=== PATIENT | female | born 1990 | race Caucasian/White ===

== ENCOUNTER 2016-12-16 20:45 | Emergency (ER) | payer BC, OTHER ==
[2016-12-16 21:11] VITALS: TEMP 98.2; BMI 28.0
--- NOTE | 2016-12-16 21:25 | PDOC ---
History of Present Illness - History of Present Illness Initial Comments: 12/16/16 21:37 Patient is a 26 year old female (36 weeks) with significant medical hx of migraines who is presenting to the ED with frontal headache and syncope. The patient reports today she developed a headache with nausea, vomiting and an episode of syncope. She states that she's had two similar events during this with headache and syncope. The patient called her CHIP MIXER who recommended taking tylenol for headache. Patient reports taking tylenol at 8 PM which did not relieve her symptoms so she decided to come to the ED for further evaluation. Denies any visual complaints, photophobia, head trauma, swelling of hands or feet, abdominal pain, or vaginal bleeding. - Reports no complications with past pregnancies. <Kyara Carpenter - Last Filed: 12/16/16 21:37> <Zulma Toscano - Last Filed: 12/19/16 08:18> - General Chief Complaint: Headache Stated Complaint: 36 WEEKS, HIGH BLOOD PRESSURE Time Seen by Provider: 12/16/16 21:15 Past History <Kyara Carpenter - Last Filed: 12/16/16 21:37> - Past Medical History Asthma: No Cancer: No Cardiac Disorders: No Diabetes: No HTN: No Seizures: No Thyroid Disease: No - Psycho/Social/Smoking Cessation Hx Suicidal Ideation: No Smoking Status: No Smoking History: Never smoked Have you smoked in the past 12 months: No Number of Cigarettes Smoked Daily: 0 Information on smoking cessation initiated: No Hx Alcohol Use: No Drug/Substance Use Hx: No Hx Substance Use Treatment: No <Zulma Toscano - Last Filed: 12/19/16 08:18> - Past Medical History Allergies/Adverse Reactions: Allergies Allergy/AdvReac Type Severity Reaction Status Date / Time No Known Allergies Allergy Verified 12/16/16 21:04 Home Medications: Ambulatory Orders Vitamins (Sjr) - 1 tab PO DAILY 08/29/13 Ibuprofen [Motrin -] 600 mg PO TID PRN #60 tablet 11/19/13 Review of Systems - Review of Systems Comments:: 12/16/16 21:41 GENERAL/CONSTITUTIONAL: No fever or chills. No weakness. HEAD, EYES, EARS, NOSE AND THROAT: No change in vision. No ear pain or discharge. No sore throat. CARDIOVASCULAR: No chest pain or shortness of breath. RESPIRATORY: No cough, wheezing, or hemoptysis. GASTROINTESTINAL: Nausea, vomiting. No diarrhea or constipation. GENITOURINARY: No dysuria, frequency, or change in urination. MUSCULOSKELETAL: No joint or muscle swelling or pain. No neck or back pain. ENDOCRINE: No increased thirst. No abnormal weight change. SKIN: No rash NEUROLOGIC: Frontal headache, loss of consciousness. No vertigo or change in strength/sensation. <Kyara Carpenter - Last Filed: 12/16/16 21:37> *Physical Exam - Vital Signs Last Vital Signs Temp Pulse Resp BP Pulse Ox 98.2 F 87 21 139/79 98 12/16/16 21:02 12/16/16 21:02 12/16/16 21:02 12/16/16 21:02 12/16/16 21:02 - Physical Exam Comments: 12/16/16 21:42 GENERAL: Awake, alert, and fully oriented, in no acute distress HEAD: No signs of trauma EYES: PERRLA, EOMI, sclera anicteric, conjunctiva clear ENT: Auricles normal inspection, hearing grossly normal, nares patent, oropharynx clear without exudates. Moist mucosa NECK: Normal ROM, supple, no lymphadenopathy, JVD, or masses LUNGS: Breath sounds equal, clear to auscultation bilaterally. No wheezes, and no crackles HEART: Regular rate and rhythm, normal S1 and S2, no murmurs, rubs or gallops ABDOMEN: Gravid abdomen. Soft, nontender, normoactive bowel sounds. No guarding , no rebound. No masses EXTREMITIES: Normal range of motion, no edema. No clubbing or cyanosis. No cords, erythema, or tenderness NEUROLOGICAL: Cranial nerves II through XII grossly intact. Normal speech, normal gait SKIN: Warm, Dry, normal turgor, no rashes or lesions noted. HEMATOLOGIC/LYMPHATIC: No anemia, easy bleeding, or history of blood clots. ALLERGIC/IMMUNOLOGIC: No hives or skin allergy. <Kyara Carpenter - Last Filed: 12/16/16 21:37> - Vital Signs Last Vital Signs Temp Pulse Resp BP Pulse Ox 98.2 F 87 21 139/79 98 12/16/16 21:02 12/16/16 21:02 12/16/16 21:02 12/16/16 21:02 12/16/16 21:02 <Zulma Toscano - Last Filed: 12/19/16 08:18> ED Treatment Course - LABORATORY CBC & Chemistry Diagram: 12/16/16 22:40 <Zulma Toscano - Last Filed: 12/19/16 08:18> Medical Decision Making - Medical Decision Making 12/16/16 22:05 Pt presents to the ED complaining of headache that is similar to the headaches that she has had throughout her . States that she vomited and immediately afterward had a syncope. Denies loss of bowel or bladder control or post ictal period. Patient reports that this is her third syncope during this pregancy. She has been told that her blood pressure is high during her last three OB visits. Denies other symptoms of pre-ecclampsia. Now is asymptomatic except for headache. Will send patient to L and D for monitoring. <Zulam Toscano - Last Filed: 12/19/16 08:18> *DC/Admit/Observation/Transfer - Attestations Scribe Attestion: 12/16/16 21:42 Documentation prepared by Kyara Carpenter, acting as durable medical equipment technician for Zulma Toscano MD. <Kyara Carpenter - Last Filed: 12/16/16 21:37> <Zulma Toscano - Last Filed: 12/19/16 08:18> Diagnosis at time of Disposition: Headache - Discharge Dispostion Disposition: HOME Condition at time of disposition: Good - Referrals Referrals: Mandy Chowdhury MD [Primary Care Provider] - - Patient Instructions Additional Instructions: Call Dr. Chowdhury's office for follow-up appointment. Begin taking an over-the- counter iron supplement. Increase your water intake. Return to Labor & Delivery for any of the following: - Regular Contractions - Ruptured Membranes - Vaginal Bleeding - Decreased Movement - Persistent Headache - Visual Changes - Upper Abdominal Pain Any questions or concerns, please call Labor and Delivery at [phone].
[2016-12-16] MEDS ORDERED: LACTATED RINGERS SOLUTION 500 ML IV ONE ×2 (22:25→23:25)
[2016-12-16 23:14] VITALS: PULSE 68
[2016-12-16 23:29] LABS: BASOPHIL 0.5 % (0-2.0); EOSINOPHIL 1.2 % (0-4.5); MCH 26.2 pg (25.7-33.7); MCHC 32.6 g/dl (32.0-36.0); MEAN CELL VOLUME 80.2 fl (80-96); MEAN PLT VOLUME 7.2 fl (7.5-11.1); PLATELET COUNT 292 K/MM3 (134-434); WHITE BLOOD COUNT 7.7 K/mm3 (4.0-10.0)
[2016-12-16 23:41] VITALS: BP 121/78
[2016-12-16] MEDS ORDERED: ACETAMINOPHEN 325 MG TABLET (FP) PO ONE (23:45)
--- NOTE | 2016-12-18 21:44 | EKG ---
Test Reason : Blood Pressure : / mmHG Vent. Rate : 077 BPM Atrial Rate : 077 BPM P-R Int : 132 ms QRS Dur : 092 ms QT Int : 400 ms P-R-T Axes : 048 061 034 degrees QTc Int : 452 ms NORMAL SINUS RHYTHM WITH SINUS ARRHYTHMIA NORMAL ECG WHEN COMPARED WITH ECG OF 01-APR-2012 16:37, NO SIGNIFICANT CHANGE WAS FOUND Confirmed by IVAN YBARRA MD ([id number]) on 12/18/2016 9:44:39 PM Referred By: Confirmed By:IVAN YBARRA MD
== END 2016-12-17 01:45 | disposition home or self-care (01) ==
LOC: JER 20:45 → SUPCPDRO 20:45 → JER 12-17 01:45
DX: O26.892 Other specified pregnancy related conditions, second trimester (principal); O16.2 Unspecified maternal hypertension, second trimester; Z3A.26 26 weeks gestation of pregnancy
CPT/HCPCS: 36415; 85025; 93005; 93010; 99282-25

== ENCOUNTER 2017-01-11 22:40 | Inpatient (IN) | payer BC ==
[2017-01-12 00:18] LABS: BASOPHIL 0.6 % (0-2.0); EOSINOPHIL 0.5 % (0-4.5); MCH 25.3 pg (25.7-33.7); MCHC 32.1 g/dl (32.0-36.0); MEAN CELL VOLUME 78.8 fl (80-96); MEAN PLT VOLUME 7.2 fl (7.5-11.1); NEUTROPHILS 76.1 % (42.8-82.8); PLATELET COUNT 274 K/MM3 (134-434); RDW 14.1 % (11.6-15.6); WHITE BLOOD COUNT 7.4 K/mm3 (4.0-10.0)
[2017-01-12 00:34] LABS: INR 0.98 (0.82-1.09); PROTHROMBIN TIME (PATIENT) 10.8 SEC (9.98-11.88)
[2017-01-12 00:37] LABS: ACTIVATED PTT 27.3 SECONDS (26.9-34.4)
[2017-01-12 00:42] LABS: ALBUMIN 2.6 g/dl (3.4-5.0); ANION GAP 10 (8-16); CALCIUM 8.7 mg/dL (8.5-10.1); CO2 24 mmol/L (21-32); CREATININE 0.6 mg/dL (0.55-1.02); GLUCOSE,RANDOM 115 mg/dL (74-106); SGOT/AST 15 U/L (15-37); SGPT/ALT 17 U/L (12-78)
[2017-01-12 00:44] LABS: ALK PHOS 158 U/L (45-117); BILIRUBIN,TOTAL 0.2 mg/dL (0.2-1.0); TOT PROT 6.4 g/dl (6.4-8.2)
[2017-01-12] MEDS ORDERED: TUBERCULIN PPD 5 TU/0.1ML SYRINGE (IN PATIENT USE ONLY) ID ONE (00:45)
[2017-01-12] MEDS ORDERED: DEXTROSE 5%-LACTATED RINGERS 1,000 ML IV SCH ×2 (00:45→01:30)
[2017-01-12 01:06] VITALS: BMI 27.4
[2017-01-12] MEDS ORDERED: DINOPROSTONE 10 MG VAGINAL SUPPOSITORY VG ONE (01:18)
--- NOTE | 2017-01-12 01:23 | HP ---
Past Medical History - Admission Chief Complaint: Leakage of fluid History of Present Illness: 26 yo @ 40 weeks gestation, EDC 01/12/17, admitted for rupture of membrane, She denies any contraction pain. History Source: Patient Limitations to Obtaining History: No Limitations - Past Medical History ...: 3 ...Para: 2 ...Term: 2 ...: 0 ...Spon : 0 ...Induced : 0 ...Multiple Gestation: 0 ...LMP: 04/07/16 ... Weeks Gestation by Dates: 39.6 ...EDC by Dates: 01/12/17 ...EDC by Sono: 01/12/17 - Past Surgical History Past Surgical History: Yes: None Hx Myomectomy: No Hx Transabdominal Cerclage: No - Smoking History Smoking history: Never smoked Have you smoked in the past 12 months: No Aproximately how many cigarettes per day: 0 - Alcohol/Substance Use Hx Alcohol Use: No History of Substance Use: reports: None - Social History Usual Living Arrangement: Yes: With Spouse ADL: Independent History of Recent Travel: No Home Medications - Allergies Allergies/Adverse Reactions: Allergies Allergy/AdvReac Type Severity Reaction Status Date / Time No Known Allergies Allergy Verified 12/16/16 21:04 - Home Medications Home Medications: Ambulatory Orders Vitamins (Sjr) - 1 tab PO DAILY 08/29/13 Family Disease History - Family Disease History Family History: Unremarkable Review of Systems - Review of Systems Constitutional: reports: No Symptoms Eyes: reports: No Symptoms HENT: reports: No Symptoms Neck: reports: No Symptoms Cardiovascular: reports: No Symptoms Respiratory: reports: No Symptoms Gastrointestinal: reports: No Symptoms Genitourinary: reports: Other (Leakage of fluid) Breasts: reports: No Symptoms Reported Musculoskeletal: reports: No Symptoms Neurological: reports: No Symptoms Psychiatric: reports: No Symptoms Pain Intensity: 2 Physical Exam - Maternity Vital Signs: Vital Signs Temperature 98.2 F 01/11/17 23:10 Pulse Rate 103 H 01/11/17 23:10 Respiratory Rate 20 01/11/17 23:10 Blood Pressure 127/84 01/11/17 23:10 O2 Sat by Pulse Oximetry (%) Constitutional: Yes: Well Nourished Eyes: Yes: Conjunctiva Clear Neck: Yes: Supple, Trachea Midline Cardiovascular: Yes: Regular Rate and Rhythm Lungs: Clear to auscultation - Abdominal Exam/OB Number of Fetuses: Single Presentation: Vertex Contractions: No Intensity: Unaware - Vaginal Exam/OB Vaginal Bleediing: No Dilatation (cm): 1-2 Effacement (%): 60 Amniotic Membrane Status: Leaking Nitrazine Test: Positive Amniotic Fluid: Yes: Clear Presentation: Vertex/Position Station: -2 - Labs Lab Results: CBC, BMP 01/12/17 00:00 01/12/17 00:00 Problem List - Problems (1) Rupture of membranes with delay of delivery Code(s): O42.90 - NAVNEET ROM, 7TH0 BETW RUPT & ONST LABR, UNSP WEEKS OF GEST Assessment/Plan Spontaneous rupture of membrane Admit to L&D Cervidil induction Re-evaluate in 12 hrs or before if indicated
[2017-01-12] MEDS ORDERED: ELECTROLYTE-148 SOLN 1,000 ML IV SCH ×2 (03:30→05:30)
[2017-01-12] MEDS ORDERED: FENTANYL/BUPIVACAINE/NS/PF - PCEA - 50 ML DISP.SYRIN EP SCH (04:30)
[2017-01-12] MEDS ORDERED: METHYLERGONOVINE MALEATE 0.2 MG/1 ML AMP IM PRN (08:59)
[2017-01-12] MEDS ORDERED: BENZOCAINE 28 GM HEMORRHOIDAL OINTMENT TP PRN (08:59)
[2017-01-12] MEDS ORDERED: BENZOCAINE 20% 57 GM BOTTLE TP PRN (08:59)
[2017-01-12] MEDS ORDERED: WITCH HAZEL 50% (TUCKS) 40 PAD/JAR PAD TP PRN (08:59)
[2017-01-12] MEDS ORDERED: ACETAMINOPHEN 325 MG TABLET (FP) PO PRN (08:59)
[2017-01-12] MEDS ORDERED: BISACODYL 10 MG SUPP.RECT RC PRN (08:59)
[2017-01-12] MEDS ORDERED: D5W-LR W/ 20 UNITS OXYTOCIN 1,000 ML IV SCH (09:00)
--- NOTE | 2017-01-12 09:04 | PN ---
Delivery - Delivery Vaginal Delivery: Spontaneous Type of Anesthesia: Epidural Episiotomy/Laceration: 1st degree EBL (cc): 300 Delivery, Single - [place] Feeding Plan Initial Plan: Elected not to breastfeed exclusively throughout hospitalization Remarks - Remarks Remarks: Normal spontaneous vaginal delivery of a live infant boy. Nose / Oropharynx suctioned @ perineum. Cord clamped and cut. Placenta expelled spontaneously intact. First degree laceration repaired with 2.0 Chromic
[2017-01-12] MEDS: PRENATAL VITAMINS W/ FOLIC ACID TABLET (FP) PO SCH (11:02)
[2017-01-12] MEDS: FERROUS SO4 325 MG TABLET (FP) PO SCH ×2 (11:03→16:50)
[2017-01-12] MEDS: IBUPROFEN 600 MG TABLET (FP) PO PRN (11:54)
--- NOTE | 2017-01-13 06:23 | PN ---
Post Note - Post Date of Delivery: 01/12/17 Post Day: 1 Vital Signs: Vital Signs - 24 hr 01/12/17 01/12/17 01/12/17 06:35 06:50 07:05 Temperature Pulse Rate 83 94 H Respiratory 20 20 20 Rate Blood Pressure 122/85 125/80 O2 Sat by Pulse 99 99 99 Oximetry (%) 01/12/17 01/12/17 01/12/17 07:20 07:35 07:50 Temperature Pulse Rate 83 101 H 98 H Respiratory 20 20 20 Rate Blood Pressure 127/83 130/92 132/85 O2 Sat by Pulse 99 99 98 Oximetry (%) 01/12/17 01/12/17 01/12/17 08:04 08:40 08:55 Temperature Pulse Rate 92 H 102 H 87 Respiratory 20 20 20 Rate Blood Pressure 124/90 130/85 146/90 O2 Sat by Pulse 98 98 Oximetry (%) 01/12/17 01/12/17 01/12/17 09:10 09:30 10:45 Temperature 98.4 F 97.4 F L Pulse Rate 82 82 81 Respiratory 20 20 20 Rate Blood Pressure 84/65 102/70 130/80 O2 Sat by Pulse Oximetry (%) 01/12/17 01/12/17 01/12/17 13:47 17:46 22:00 Temperature 98.1 F 98.4 F 98.8 F Pulse Rate 84 89 79 Respiratory 20 20 18 Rate Blood Pressure 134/83 130/88 143/93 O2 Sat by Pulse Oximetry (%) 01/13/17 01/13/17 02:00 06:00 Temperature 98.2 F 98.2 F Pulse Rate 79 79 Respiratory 18 18 Rate Blood Pressure 133/81 136/88 O2 Sat by Pulse Oximetry (%) Labs: Laboratory Results - last 24 hr 01/12/17 00:00 RPR Titer Nonreactive - Subjective Subjective: No Complaints - Objective Afebrile: Yes Breast: Not engorged Abdomen: Soft, Non-tender Uterus: Fundus firm Vagina: Scant lochia Extremities: Non-tender - Assessment/Plan (1) Status post vaginal delivery Assessment: S/P Normal Plan: Routine Care
[2017-01-13 08:02] LABS: BASOPHIL 0.6 % (0-2.0); EOSINOPHIL 0.7 % (0-4.5); MCH 25.9 pg (25.7-33.7); MCHC 32.6 g/dl (32.0-36.0); MEAN CELL VOLUME 79.5 fl (80-96); MEAN PLT VOLUME 7.4 fl (7.5-11.1); NEUTROPHILS 79.8 % (42.8-82.8); PLATELET COUNT 233 K/MM3 (134-434); RDW 14.7 % (11.6-15.6); WHITE BLOOD COUNT 10.2 K/mm3 (4.0-10.0)
[2017-01-13] MEDS: FERROUS SO4 325 MG TABLET (FP) PO SCH ×3 (08:20→17:16)
[2017-01-13] MEDS: PRENATAL VITAMINS W/ FOLIC ACID TABLET (FP) PO SCH (09:14)
[2017-01-13] MEDS ORDERED: DIPHTH,PERTUSS(ACELL),TET 0.5 ML DISP.SYRIN IM ONE (10:00)
[2017-01-13] MEDS: IBUPROFEN 600 MG TABLET (FP) PO PRN ×2 (11:30→21:07)
[2017-01-13] MEDS ORDERED: SENNOSIDES/DOCUSATE COMBO (SENNA PLUS) TABLET (UD) PO PRN (22:00)
--- NOTE | 2017-01-14 05:12 | DS ---
Physical Exam-PHOTOGRAPH INSPECTOR Vital Signs: Vital Signs Temperature 98.0 F 01/13/17 22:00 Pulse Rate 76 01/13/17 22:00 Respiratory Rate 18 01/13/17 22:00 Blood Pressure 126/81 01/13/17 22:00 O2 Sat by Pulse Oximetry (%) 98 01/12/17 08:40 Constitutional: Yes: Well Nourished, No Distress Neck: Yes: WNL Cardiovascular: Yes: WNL, Regular Rate and Rhythm Respiratory: Yes: WNL Gastrointestinal: Yes: WNL ...Rectal Exam: Yes: WNL ....Post : Yes: Uterus firm, Uterus non-tender Musculoskeletal: Yes: WNL Extremities: Yes: WNL Edema: No Labs: CBC, BMP 01/13/17 06:00 01/12/17 00:00 Delivery - Delivery Vaginal Delivery: Spontaneous Type of Anesthesia: Epidural Episiotomy/Laceration: 1st degree EBL (cc): 300 Delivery, Single - Stages of Labor Date 1st Stage Initiatied: 01/12/17 Time 1st Stage Initiated: 04:00 Date 2nd Stage Initiated: 01/12/17 Time 2nd Stage Initiated: 08:10 Date of Delivery: 01/12/17 Time of Delivery: 08:26 Time Placenta Delivered: 08:30 Placenta: Yes: Spontaneous - Condition of Senior Developer/Email Marketing Processor Present: No Gender: Male Weight: 7 lb 7 oz Position: Left, OA Total Hours ROM (Hrs/Mins): 10/54 - 1 Minute Total Score: 9 5 Minutes Total Score: 9 - Feeding Plan Initial Plan: Elected not to breastfeed exclusively throughout hospitalization Discharge Summary Reason For Visit: LABOR Current Active Problems Rupture of membranes with delay of delivery (Acute) Procedures: Principal: Normal vaginal delivery Condition: Good - Instructions Referrals: Mandy Chowdhury MD [Staff Physician] - Disposition: HOME - Home Medications Comprehensive Discharge Medication List: Ambulatory Orders Vitamins (Sjr) - 1 tab PO DAILY 08/29/13 Ferrous Sulfate [Feosol] 325 mg PO DAILY 01/12/17 Ibuprofen [Motrin -] 600 mg PO QID PRN #28 tablet 01/12/17
[2017-01-14] MEDS: FERROUS SO4 325 MG TABLET (FP) PO SCH (08:45)
[2017-01-14] MEDS: PRENATAL VITAMINS W/ FOLIC ACID TABLET (FP) PO SCH (09:28)
[2017-01-14 14:22] VITALS: BP 127/85; PULSE 74; TEMP 98.9
== END 2017-01-14 10:15 | disposition home or self-care (01) | DRG 775 ==
LOC: JDEL 22:40 → JLDR 23:10 → J3W 01-12 10:29
PROVIDERS: ADMIT Obstetrics & Gynecology; ATTEND Obstetrics & Gynecology
PROC: 0HQ9XZZ Repair Perineum Skin, External Approach (ICD-10-PCS; principal; 2017-01-12)
PROC: 10E0XZZ Delivery of Products of Conception, External Approach (ICD-10-PCS; 2017-01-12)
PROC: 3E0P7GC Introduction of Other Therapeutic Substance into Female Reproductive, Via Natural or Artificial Opening (ICD-10-PCS; 2017-01-12)
DX: O48.0 Post-term pregnancy (principal); Z37.0 Single live birth; O70.0 First degree perineal laceration during delivery; Z3A.40 40 weeks gestation of pregnancy
CPT/HCPCS: 36415; 59409; 80053; 85025; 85610; 85730; 86593; 86762; 86850; 86900; 86901; 87340; 90715

== ENCOUNTER 2022-03-26 16:20 | Inpatient (IN) | payer OTHER ==
[2022-03-26] MEDS: NIFEdipine 10 MG CAPSULE (FP) PO SCH (17:13)
[2022-03-26] MEDS ORDERED: NIFEdipine 10 MG CAPSULE (FP) ONE (17:13)
[2022-03-26 17:24] VITALS: BMI 29.0
[2022-03-26 17:25] LABS: BASO % 0.4 % (0-2.0); EOS % 0.1 % (0-4.5); HEMOGLOBIN 11.4 GM/dL (10.7-15.3); LYMPH % 14.6 % (8-40); MCH 26.8 pg (25.7-33.7); MCHC 33.4 g/dl (32.0-36.0); MEAN CELL VOLUME 80.2 fl (80-96); MEAN PLT VOLUME 6.8 fl (7.5-11.1); MONO % 4.6 % (3.8-10.2); NEUT % 80.3 % (42.8-82.8); PLATELET COUNT 297 10^3/uL (134-434); RBC 4.24 M/mm3 (3.60-5.2); RDW 12.9 % (11.6-15.6); WHITE BLOOD COUNT 9.9 K/mm3 (4.0-10.0)
[2022-03-26 17:29] LABS: EPI CELLS >36 /uL (0-25.1); HYALINE CASTS 12 /uL (0-3.1); URINE APPEARANCE TURBID; URINE BACTERIA >9,000 /uL (0-1359); URINE BILIRUBIN NEGATIVE (NEGATIVE); URINE COLOR YELLOW; URINE GLUCOSE (UA) NEGATIVE (NEGATIVE); URINE KETONE 1+ (NEGATIVE); URINE LEUK ESTERASE 3+ (NEGATIVE); URINE NITRITE NEGATIVE (NEGATIVE); URINE PROTEIN 1+ (NEGATIVE); URINE RBC 15 /uL (0-23.9); URINE WBC 2619 /uL (0-25.8)
[2022-03-26 17:32] LABS: INR 0.94 (0.83-1.09); PROTHROMBIN TIME (PATIENT) 10.8 SEC (9.7-13.0)
[2022-03-26 17:35] LABS: ACTIVATED PTT 27.2 SECONDS (25.2-36.5)
[2022-03-26 17:42] LABS: CALCIUM 8.8 mg/dL (8.5-10.1)
[2022-03-26 17:43] LABS: ALBUMIN 2.7 g/dl (3.4-5.0); BLOOD UREA NITROGEN 8.9 mg/dL (7-18)
[2022-03-26 17:47] LABS: CREATININE 0.7 mg/dL (0.55-1.3)
[2022-03-26 17:48] LABS: BILIRUBIN,TOTAL 0.2 mg/dL (0.2-1); TOT PROT 6.6 g/dl (6.4-8.2)
[2022-03-26] MEDS ORDERED: BETAMET ACET/BETAMET NA PH 30 MG/5 ML VIAL ONE (17:49)
[2022-03-26] MEDS ORDERED: BETAMET ACET/BETAMET NA PH 30 MG/5 ML VIAL IM ONE (17:51)
[2022-03-26 18:11] LABS: SYPHILIS W/ RPR CONF NON-REACTIVE (NONREACTIVE)
[2022-03-26 18:40] LABS: HIV INTERPRETATION NEGATIVE (NEGATIVE)
[2022-03-26 18:54] LABS: YEAST FEW (NEGATIVE)
[2022-03-26] MEDS ORDERED: ACETAMINOPHEN 500 MG TABLET (FP) ONE (19:38)
[2022-03-26] MEDS ORDERED: ACETAMINOPHEN 500 MG TABLET (FP) PO ONE (20:00)
[2022-03-26] MEDS: LABETALOL HCL 200 MG TABLET (FP) PO SCH (22:00)
[2022-03-26] MEDS ORDERED: LABETALOL HCL 200 MG TABLET (FP) ONE (22:03)
[2022-03-26] MEDS ORDERED: CITRIC ACID/SODIUM CITRATE 30 ML UNIT-DOSE CUP PO ONE (22:45)
[2022-03-27] MEDS ORDERED: ACETAMINOPHEN 500 MG TABLET (FP) ONE (04:54)
[2022-03-27] MEDS ORDERED: ACETAMINOPHEN 500 MG TABLET (FP) PO ONE (05:15)
[2022-03-27] MEDS: NIFEdipine 10 MG CAPSULE (FP) PO SCH ×3 (05:20→16:07)
[2022-03-27 08:00] VITALS: RESP 18
[2022-03-27 09:24] LABS: COCAINE, UR NEGATIVE (NEGATIVE)
[2022-03-27 09:26] LABS: PHENCYCLIDINE,URINE NEGATIVE (NEGATIVE); URINE BARBITURATES NEGATIVE (NEGATIVE); URINE BENZODIAZEPINES NEGATIVE (NEGATIVE)
[2022-03-27 09:35] LABS: METHADONE, UR NEGATIVE (NEGATIVE); OPIATES, URI NEGATIVE (NEGATIVE); URINE AMPHETAMINES NEGATIVE (NEGATIVE)
[2022-03-27] MEDS: LABETALOL HCL 200 MG TABLET (FP) PO SCH (10:02)
[2022-03-27] MEDS ORDERED: BETAMET ACET/BETAMET NA PH 30 MG/5 ML VIAL IM ONE (18:00)
[2022-03-27 19:05] LABS: METHADONE, UR NEGATIVE (NEGATIVE); PHENCYCLIDINE,URINE NEGATIVE (NEGATIVE); URINE BENZODIAZEPINES NEGATIVE (NEGATIVE)
[2022-03-27 19:11] LABS: COCAINE, UR NEGATIVE (NEGATIVE); OPIATES, URI NEGATIVE (NEGATIVE); URINE AMPHETAMINES NEGATIVE (NEGATIVE); URINE BARBITURATES NEGATIVE (NEGATIVE)
[2022-03-27] MEDS: LABETALOL HCL 100 MG TABLET (FP) PO SCH (21:01)
[2022-03-28 06:11] VITALS: TEMP 97.8
[2022-03-28 08:22] VITALS: BP 130/93; PULSE 82
[2022-03-28] MEDS: LABETALOL HCL 100 MG TABLET (FP) PO SCH (09:58)
[2022-03-30 14:07] LABS: ALBUMIN % 24.2 % (.); ALPHA-1 FOR UPE 6.1 % (.); TOTAL PROTEIN, URINE 8.2 mg/dL (Not Estab.)
== END 2022-03-28 11:15 | disposition home or self-care (01) | DRG 566 ==
LOC: JDEL 16:20 → JLDR 16:30 → J3W 03-27 08:20
PROVIDERS: ADMIT Obstetrics & Gynecology; ATTEND Obstetrics & Gynecology
DX: O10.913 Unspecified pre-existing hypertension complicating pregnancy, third trimester (principal); Z3A.35 35 weeks gestation of pregnancy
CPT/HCPCS: 36415; 76801-TC; 80053; 80307; 81003; 82570; 84156; 84166; 85025; 85610; 85730; 86762; 86780; 86850; 86900; 86901; 87081; 87340; 87389; 96372; C9803-CS; G0480; U0003; U0005

== ENCOUNTER 2022-04-01 16:48 | Inpatient (IN) | payer OTHER ==
[2022-04-01 18:05] VITALS: BMI 29.0
[2022-04-01] MEDS ORDERED: AMPICILLIN - 2 GM in SODIUM CHLORIDE 100 ML IVPB ONE (19:36)
[2022-04-01] MEDS ORDERED: OXYTOCIN 30 UNITS in 0.9% NS 30 UNIT/500 ML INFUS.BAG IVPB ONE (19:39)
[2022-04-01] MEDS ORDERED: AMPICILLIN SODIUM 2 GM VIAL ONE (19:39)
[2022-04-01] MEDS ORDERED: ELECTROLYTE-148 SOLN 1,000 ML IV SCH (19:45)
[2022-04-01] MEDS ORDERED: OXYTOCIN 30 UNITS in 0.9% NS 30 UNIT/500 ML INFUS.BAG IVPB SCH (19:45)
[2022-04-01 21:53] LABS: ALBUMIN 2.4 g/dl (3.4-5.0); BLOOD UREA NITROGEN 9.5 mg/dL (7-18)
[2022-04-01 21:56] LABS: CALCIUM 9.2 mg/dL (8.5-10.1)
[2022-04-01 21:57] LABS: CREATININE 0.6 mg/dL (0.55-1.3)
[2022-04-01 22:01] LABS: BILIRUBIN,TOTAL 0.2 mg/dL (0.2-1); TOT PROT 5.9 g/dl (6.4-8.2)
[2022-04-02] MEDS ORDERED: AMPICILLIN SODIUM 1 GM VIAL ONE ×2 (00:33→04:25)
[2022-04-02] MEDS: AMPICILLIN - 1 GM in SODIUM CHLORIDE 100 ML IVPB SCH ×3 (00:35→08:03)
[2022-04-02] MEDS ORDERED: FENTANYL/BUPIVACAINE/NS/PF - PCEA - 50 ML DISP.SYRIN EP ONE (02:45)
[2022-04-02] MEDS ORDERED: FENTANYL/BUPIVACAINE/NS/PF - PCEA - 50 ML DISP.SYRIN EP SCH (03:00)
[2022-04-02] MEDS ORDERED: NALOXONE HCL 0.4 MG/ML VIAL IVPUSH PRN (03:00)
[2022-04-02] MEDS ORDERED: BUPIVACAINE HCL/PF 0.25% (2.5MG/ML) 10 ML VIAL ONE (03:01)
[2022-04-02] MEDS ORDERED: LIDOCAINE HCL 1% PRESERVATIVE FREE - 30ML VIAL ONE (05:48)
[2022-04-02] MEDS ORDERED: OXYTOCIN 20 UNITS in 0.9% NS 20 UNIT/1,000 ML INFUS.BAG IV ONE (05:48)
[2022-04-02] MEDS ORDERED: BENZOCAINE 28 GM HEMORRHOIDAL OINTMENT TP PRN (07:03)
[2022-04-02] MEDS ORDERED: WITCH HAZEL 50% (TUCKS) 40 PAD/JAR PAD TP PRN (07:03)
[2022-04-02] MEDS ORDERED: METHYLERGONOVINE MALEATE 0.2 MG/1 ML AMP IM PRN (07:03)
[2022-04-02] MEDS ORDERED: ACETAMINOPHEN 325 MG TABLET (FP) PO PRN (07:03)
[2022-04-02] MEDS ORDERED: BENZOCAINE 20% 57 GM BOTTLE TP PRN (07:03)
[2022-04-02] MEDS ORDERED: BISACODYL 10 MG SUPP.RECT RC PRN (07:03)
[2022-04-02] MEDS ORDERED: IBUPROFEN 600 MG TABLET (FP) PO PRN (07:03)
[2022-04-02] MEDS ORDERED: oxyCODONE HCL 5 MG TABLET PO PRN (07:03)
[2022-04-02] MEDS ORDERED: OXYTOCIN 20 UNITS in 0.9% NS 20 UNIT/1,000 ML INFUS.BAG IV SCH (07:15)
[2022-04-02] MEDS ORDERED: IBUPROFEN 600 MG TABLET (FP) PO ONE (07:49)
[2022-04-03 10:13] LABS: BASO % 0.6 % (0-2.0); EOS % 0.9 % (0-4.5); HEMATOCRIT 26.7 % (32.4-45.2); HEMOGLOBIN 8.6 GM/dL (10.7-15.3); MCH 26.1 pg (25.7-33.7); MCHC 32.2 g/dl (32.0-36.0); MEAN PLT VOLUME 7.3 fl (7.5-11.1); MONO % 4.6 % (3.8-10.2); NEUT % 76.9 % (42.8-82.8); PLATELET COUNT 285 10^3/uL (134-434); RBC 3.29 M/mm3 (3.60-5.2); RDW 13.4 % (11.6-15.6); WHITE BLOOD COUNT 8.4 K/mm3 (4.0-10.0)
[2022-04-03] MEDS: LABETALOL HCL 100 MG TABLET (FP) PO PRN ×2 (15:48→21:41)
[2022-04-03] MEDS ORDERED: SENNOSIDES/DOCUSATE COMBO (SENNA PLUS) TABLET (UD) PO PRN (22:00)
[2022-04-04 06:21] VITALS: PULSE 83; RESP 18
[2022-04-04] MEDS: LABETALOL HCL 100 MG TABLET (FP) PO PRN (06:29)
[2022-04-04 08:47] VITALS: BP 131/92; TEMP 98.1
== END 2022-04-04 10:50 | disposition home or self-care (01) | DRG 560 ==
LOC: JLDR 16:48 → J3W 04-02 09:15
PROVIDERS: ADMIT Specialist; ATTEND Specialist
PROC: 0W8NXZZ Division of Female Perineum, External Approach (ICD-10-PCS; 2022-04-01)
PROC: 3E033VJ Introduction of Other Hormone into Peripheral Vein, Percutaneous Approach (ICD-10-PCS; 2022-04-01)
PROC: 10907ZC Drainage of Amniotic Fluid, Therapeutic from Products of Conception, Via Natural or Artificial Opening (ICD-10-PCS; 2022-04-01)
PROC: 10D07Z6 Extraction of Products of Conception, Vacuum, Via Natural or Artificial Opening (ICD-10-PCS; principal; 2022-04-02)
DX: O10.92 Unspecified pre-existing hypertension complicating childbirth (principal); O99.824 Streptococcus B carrier state complicating childbirth; O69.1XX0 Labor and delivery complicated by cord around neck, with compression, not applicable or unspecified; O69.2XX0 Labor and delivery complicated by other cord entanglement, with compression, not applicable or unspecified; Z3A.38 38 weeks gestation of pregnancy; Z37.0 Single live birth
CPT/HCPCS: 36415; 59409; 80053; 85025; 85027; 85610; 85730; 86780; 86850; 86900; 86901; 87389; C9803-CS; U0003; U0005